=== PATIENT | female | born 1960 | race Caucasian/White ===

== ENCOUNTER 2017-07-13 00:45 | Day surgery (SDC) | payer MEDICARE, OTHER ==
[~2017-07-13] VITALS: Ht 172.7 cm; Wt 77.0 kg
[~2017-07-13 00:45] MED LIST: ACET325 PO; ACIDOPHILUS LA1 EACH PO; AMOCLA875 PO; ASCO500 PO; ASPI81CH PO; ATEN100; Bactrim Ds Tab1 EACH PO; CEPH500 PO; CLON.1 PO; Cleocin HCl300 MG PO; DOXY100 PO; ESOM20 PO; Ferrous Sulfat325 MG PO; GABA300 PO; GLIP5 PO; HYDACE5 PO; INSDET100 SC; LEVO750 PO; LISI20 PO; LISINOPRIL; METF500 PO; MORP30ER PO; MUPI1NAS; Novolog Fl100 UNIT/1 SC; OMEP20ER PO; ONDA4 PO; ONDA4ODT MM; OXYACE5T PO; OXYC15ER PO; Omeprazole20 M1 PO; PRED20 PO; PROM25 PO; Roxicodone15 MG PO; SULTRIDS PO; Silvadene20 GM TOP; TRAM50 PO; VANCO 1.251.25 GM/25 IV; Zofran Odt8 MG SL
[2017-07-13 08:31] LABS: Creatinine, Blood 0.56 mg/dL (0.40-1.00); Vancomycin, Trough 10.4 ug/mL (5.0-10.0)
[2017-07-21] MEDS ORDERED: VANCO 1.51.5 GM/250 IV (07:48)
[2017-08-05] MEDS ORDERED: METO2.5 PO (08:06)
[2017-08-05] MEDS ORDERED: SPIR25 PO (08:06)
[2017-08-05] MEDS ORDERED: BUME2 PO (08:07)
== END 2017-07-14 22:46 | disposition home or self-care (01) ==
LOC: ATC 00:45
PROVIDERS: Internal Medicine Infectious Disease
DX: E11.69 Type 2 diabetes mellitus with other specified complication (principal); M86.9 Osteomyelitis, unspecified; G35 Multiple sclerosis; J44.9 Chronic obstructive pulmonary disease, unspecified; I10 Essential (primary) hypertension; D63.8 Anemia in other chronic diseases classified elsewhere; F17.210 Nicotine dependence, cigarettes, uncomplicated; Z89.429 Acquired absence of other toe(s), unspecified side; Z79.899 Other long term (current) drug therapy; Z88.8 Allergy status to other drugs, medicaments and biological substances
CPT/HCPCS: 80202; 82565; 96365; J3370; J7050

== ENCOUNTER 2017-07-14 00:26 | Day surgery (SDC) | payer MEDICARE, OTHER ==
[2017-07-21] MEDS ORDERED: VANCO 1.51.5 GM/250 IV (07:48)
[2017-08-05] MEDS ORDERED: SPIR25 PO (08:06)
[2017-08-05] MEDS ORDERED: METO2.5 PO (08:06)
[2017-08-05] MEDS ORDERED: BUME2 PO (08:07)
== END 2017-07-14 18:50 | disposition home or self-care (01) ==
LOC: ATC 00:26
DX: E11.69 Type 2 diabetes mellitus with other specified complication (principal); M86.9 Osteomyelitis, unspecified; D63.8 Anemia in other chronic diseases classified elsewhere; G35 Multiple sclerosis; I10 Essential (primary) hypertension; J44.9 Chronic obstructive pulmonary disease, unspecified; F17.210 Nicotine dependence, cigarettes, uncomplicated; Z89.429 Acquired absence of other toe(s), unspecified side; Z79.899 Other long term (current) drug therapy; Z88.8 Allergy status to other drugs, medicaments and biological substances
CPT/HCPCS: 96365; 96366; J3370; J7050

== ENCOUNTER 2017-08-11 00:45 | Day surgery (SDC) | payer MEDICARE, OTHER ==
[~2017-08-11 00:45] MED LIST changes: +BUME2 PO; +METO2.5 PO; +SPIR25 PO; +VANCO 1.51.5 GM/250 IV
== END 2017-08-11 18:43 | disposition home or self-care (01) ==
LOC: ATC 00:45
DX: E11.69 Type 2 diabetes mellitus with other specified complication (principal); M86.171 Other acute osteomyelitis, right ankle and foot; M86.172 Other acute osteomyelitis, left ankle and foot; I96 Gangrene, not elsewhere classified; G35 Multiple sclerosis; D63.8 Anemia in other chronic diseases classified elsewhere; E11.621 Type 2 diabetes mellitus with foot ulcer; L97.516 Non-pressure chronic ulcer of other part of right foot with bone involvement without evidence of necrosis; J44.9 Chronic obstructive pulmonary disease, unspecified; Z89.422 Acquired absence of other left toe(s); Z89.421 Acquired absence of other right toe(s); Z95.828 Presence of other vascular implants and grafts; F17.210 Nicotine dependence, cigarettes, uncomplicated; Z88.8 Allergy status to other drugs, medicaments and biological substances; Z45.2 Encounter for adjustment and management of vascular access device
CPT/HCPCS: 36593; 96365; J2997; J3370; J7050

== ENCOUNTER 2017-08-13 00:16 | Day surgery (SDC) | payer MEDICARE, OTHER | END 2017-08-13 23:19 | disposition home or self-care (01) | LOC: ATC 00:16 | DX: E11.69 Type 2 diabetes mellitus with other specified complication (principal); M86.9 Osteomyelitis, unspecified; E11.621 Type 2 diabetes mellitus with foot ulcer; L97.519 Non-pressure chronic ulcer of other part of right foot with unspecified severity; Z89.421 Acquired absence of other right toe(s); I10 Essential (primary) hypertension; G35 Multiple sclerosis; J44.9 Chronic obstructive pulmonary disease, unspecified; D63.0 Anemia in neoplastic disease; F17.210 Nicotine dependence, cigarettes, uncomplicated ==

== ENCOUNTER 2017-08-14 00:33 | Day surgery (SDC) | payer MEDICARE, OTHER ==
[2017-08-14 08:30] LABS: Creatinine, Blood 1.02 mg/dL (0.40-1.00); Vancomycin, Trough 6.6 ug/mL (5.0-10.0)
== END 2017-08-14 18:23 | disposition home or self-care (01) ==
LOC: ATC 00:33
PROVIDERS: Internal Medicine Infectious Disease
DX: E11.69 Type 2 diabetes mellitus with other specified complication (principal); M86.9 Osteomyelitis, unspecified; G35 Multiple sclerosis; E11.621 Type 2 diabetes mellitus with foot ulcer; I10 Essential (primary) hypertension; D63.0 Anemia in neoplastic disease; L97.519 Non-pressure chronic ulcer of other part of right foot with unspecified severity; Z89.421 Acquired absence of other right toe(s); F17.210 Nicotine dependence, cigarettes, uncomplicated
CPT/HCPCS: 80202; 82565; 96365; J3370; J7050

== ENCOUNTER 2017-08-15 00:09 | Day surgery (SDC) | payer MEDICARE, OTHER | END 2017-08-15 18:15 | disposition home or self-care (01) | LOC: ATC 00:09 | DX: E11.69 Type 2 diabetes mellitus with other specified complication (principal); M86.9 Osteomyelitis, unspecified; G35 Multiple sclerosis; E11.621 Type 2 diabetes mellitus with foot ulcer; I10 Essential (primary) hypertension; D63.0 Anemia in neoplastic disease; L97.519 Non-pressure chronic ulcer of other part of right foot with unspecified severity; Z89.421 Acquired absence of other right toe(s) | CPT/HCPCS: 85651; 86140; 96365; J3370; J7050 ==

== ENCOUNTER 2017-08-16 00:22 | Day surgery (SDC) | payer MEDICARE, OTHER | END 2017-08-16 23:20 | disposition home or self-care (01) | LOC: ATC 00:22 | DX: E11.69 Type 2 diabetes mellitus with other specified complication (principal); M86.9 Osteomyelitis, unspecified; G35 Multiple sclerosis; D63.0 Anemia in neoplastic disease; E11.621 Type 2 diabetes mellitus with foot ulcer; L97.519 Non-pressure chronic ulcer of other part of right foot with unspecified severity; Z89.421 Acquired absence of other right toe(s); F17.210 Nicotine dependence, cigarettes, uncomplicated | CPT/HCPCS: 96365; J3370; J7050 ==

== ENCOUNTER 2017-08-17 01:05 | Day surgery (SDC) | payer MEDICARE, OTHER ==
[2017-08-17 08:19] LABS: BASOPHILS ABSOLUTE AUTO 0.02 K/mm3 (0.00-0.23); BASOPHILS PERCENT AUTO 0 % (0-2); EOSINOPHILS ABSOLUTE AUTO 0.13 K/mm3 (0.00-0.68); EOSINOPHILS PERCENT AUTO 2 % (0-6); Hematocrit 36.1 % (33.0-51.0); Hemoglobin 11.4 g/dL (11.5-16.0); IMMATURE GRAN ABSOLUTE AUTO 0.01 K/mm3 (0.00-0.10); IMMATURE GRAN PERCENT AUTO 0 % (0-1); LYMPHOCYTES ABSOLUTE AUTO 2.49 K/mm3 (0.84-5.20); LYMPHOCYTES PERCENT AUTO 41 % (21-46); MONOCYTES ABSOLUTE AUTO 0.36 K/mm3 (0.16-1.47); MONOCYTES PERCENT AUTO 6 % (4-13); Mean Corpuscular HGB 25.6 pg (26.0-34.0); Mean Corpuscular HGB Conc 31.6 g/dL (31.5-36.5); Mean Corpuscular Volume 81 fL (80-100); Mean Platelet Volume 9.6 fL (9.1-12.4); NEUTROPHILS ABSOLUTE AUTO 3.05 K/mm3 (1.96-9.15); NEUTROPHILS PERCENT AUTO 50 % (41-73); Platelet Count 288 K/mm3 (150-400); RDW Coefficient Variation 18.1 % (11.7-14.2); Red Blood Cell Count 4.45 M/mm3 (3.80-5.20); White Blood Cell Count 6.06 K/mm3 (4.00-11.30)
[2017-08-17 08:23] LABS: Alanine Aminotransfer (ALT/SGP 17 U/L (12-78); Albumin, Blood 3.3 g/dL (3.4-5.0); Albumin/Globulin Ratio 0.6 (0.8-1.8); Alk Phos 125 U/L (50-136); Anion Gap 4 mmol/L (6-16); Aspartate Aminotrans (AST/SGOT 19 U/L (12-37); Bilirubin, Total 0.3 mg/dL (0.1-1.0); Blood Urea Nitrogen 19 mg/dL (8-24); CO2, Blood 31 mmol/L (21-32); Calcium, Blood 9.1 mg/dL (8.5-10.1); Chloride, Blood 96 mmol/L (98-108); Creatinine, Blood 0.86 mg/dL (0.40-1.00); Globulin, Blood 5.1 g/dL (2.2-4.0); Glomerular Filtration Rate >60 (60-); Glucose, Blood 174 mg/dL (70-99); Potassium, Blood 4.2 mmol/L (3.5-5.5); Sodium, Blood 131 mmol/L (136-145); Total Protein, Blood 8.4 g/dL (6.4-8.2)
[2017-08-17 08:47] LABS: Vancomycin, Trough 23.1 ug/mL (5.0-10.0)
== END 2017-08-17 17:37 | disposition home or self-care (01) ==
LOC: ATC 01:05
PROVIDERS: Internal Medicine Infectious Disease
DX: E11.69 Type 2 diabetes mellitus with other specified complication (principal); M86.9 Osteomyelitis, unspecified; G35 Multiple sclerosis; E11.621 Type 2 diabetes mellitus with foot ulcer; L97.519 Non-pressure chronic ulcer of other part of right foot with unspecified severity; Z89.429 Acquired absence of other toe(s), unspecified side; I10 Essential (primary) hypertension; J44.9 Chronic obstructive pulmonary disease, unspecified; D63.0 Anemia in neoplastic disease
CPT/HCPCS: 80053; 80202; 85025; 96365; J3370; J7050

== ENCOUNTER 2017-08-18 00:43 | Day surgery (SDC) | payer MEDICARE, OTHER | END 2017-08-18 17:50 | disposition home or self-care (01) | LOC: ATC 00:43 | DX: E11.69 Type 2 diabetes mellitus with other specified complication (principal); M86.9 Osteomyelitis, unspecified; G35 Multiple sclerosis; E11.621 Type 2 diabetes mellitus with foot ulcer; L97.519 Non-pressure chronic ulcer of other part of right foot with unspecified severity; Z89.429 Acquired absence of other toe(s), unspecified side; I10 Essential (primary) hypertension; D63.0 Anemia in neoplastic disease; F17.210 Nicotine dependence, cigarettes, uncomplicated | CPT/HCPCS: 96365; J3370; J7050 ==

== ENCOUNTER 2017-08-19 00:43 | Day surgery (SDC) | payer MEDICARE, OTHER | END 2017-08-19 17:38 | disposition home or self-care (01) | LOC: ATC 00:43 | DX: E11.69 Type 2 diabetes mellitus with other specified complication (principal); M86.171 Other acute osteomyelitis, right ankle and foot; I96 Gangrene, not elsewhere classified; Z88.8 Allergy status to other drugs, medicaments and biological substances; G35 Multiple sclerosis | CPT/HCPCS: 96365; J3370; J7050 ==

== ENCOUNTER → 2017-08-30 | Outpatient (CLI) | payer MEDICARE, OTHER | END | disposition home or self-care (01) | LOC: LAB 13:50 | DX: E11.621 Type 2 diabetes mellitus with foot ulcer (principal); M86.172 Other acute osteomyelitis, left ankle and foot | CPT/HCPCS: 87070; 87075; 87077; 87186; 87205 ==

== ENCOUNTER → 2017-09-06 | Outpatient (CLI) | payer MEDICARE, OTHER | LOC: LAB 14:54 | DX: M86.179 Other acute osteomyelitis, unspecified ankle and foot (principal) | CPT/HCPCS: 87070; 87077; 87147; 87186; 87205 ==

== ENCOUNTER 2019-06-25 11:20 | Emergency (ER) | payer MEDICARE, OTHER ==
[~2019-06-25] VITALS: Ht 172.7 cm; Wt 86.2 kg
[2019-06-25] MEDS ORDERED: Bactrim Ds Tab1 EACH PO (12:08)
[2019-06-25] MEDS ORDERED: CEPH500 PO (12:08)
== END 2019-06-25 12:15 | disposition home or self-care (01) ==
LOC: ER 11:20
DX: L03.115 Cellulitis of right lower limb (principal); L03.116 Cellulitis of left lower limb; E11.9 Type 2 diabetes mellitus without complications; I10 Essential (primary) hypertension; F17.210 Nicotine dependence, cigarettes, uncomplicated; Z91.09 Other allergy status, other than to drugs and biological substances; Z79.899 Other long term (current) drug therapy
CPT/HCPCS: 99282

== ENCOUNTER 2020-04-18 10:59 | Inpatient (IN) | payer MEDICARE, OTHER ==
[~2020-04-18] VITALS: Ht 172.7 cm; Wt 81.7 kg
[~2020-04-18 10:59] MED LIST changes: +Neurontin 100100 MG PO; +PANT40 PO; -Roxicodone15 MG PO; +Zovirax800 MG PO
[2020-04-18 12:10] LABS: BASOPHILS ABSOLUTE AUTO 0.04 K/mm3 (0.00-0.23); BASOPHILS PERCENT AUTO 0 % (0-2); EOSINOPHILS ABSOLUTE AUTO 0.04 K/mm3 (0.00-0.68); EOSINOPHILS PERCENT AUTO 0 % (0-6); Hematocrit 27.8 % (33.0-51.0); Hemoglobin 8.6 g/dL (11.5-16.0); IMMATURE GRAN PERCENT AUTO 1 % (0-1); LYMPHOCYTES ABSOLUTE AUTO 1.14 K/mm3 (0.84-5.20); LYMPHOCYTES PERCENT AUTO 7 % (21-46); MONOCYTES ABSOLUTE AUTO 0.61 K/mm3 (0.16-1.47); MONOCYTES PERCENT AUTO 4 % (4-13); Mean Corpuscular HGB 26.1 pg (26.0-34.0); Mean Corpuscular HGB Conc 30.9 g/dL (31.5-36.5); Mean Corpuscular Volume 84 fL (80-100); Mean Platelet Volume 9.6 fL (9.1-12.4); NEUTROPHILS ABSOLUTE AUTO 13.51 K/mm3 (1.96-9.15); NEUTROPHILS PERCENT AUTO 87 % (41-73); Platelet Count 371 K/mm3 (150-400); RDW Coefficient Variation 16.3 % (11.7-14.2); RDW Standard Deviation 50.6 fL (35.1-46.3); White Blood Cell Count 15.44 K/mm3 (4.00-11.30)
[2020-04-18 12:26] LABS: Albumin, Blood 1.6 g/dL (3.4-5.0); Albumin/Globulin Ratio 0.2 (0.8-1.8); Bilirubin, Total 0.5 mg/dL (0.1-1.0); Bun/Creatinine Ratio 13.9 (12.0-20.0); Calcium, Blood 8.9 mg/dL (8.5-10.1); Creatinine, Blood 2.01 mg/dL (0.40-1.00); Globulin, Blood 6.9 g/dL (2.2-4.0); Potassium, Blood 4.5 mmol/L (3.5-5.5); Total Protein, Blood 8.5 g/dL (6.4-8.2)
[2020-04-18 12:32] LABS: International Normalized Ratio 1.21; Prothrombin Time Results 12.8 Sec (9.7-11.5)
[2020-04-18] MEDS ORDERED: ROXICODONE15 MG PO (13:19)
[2020-04-18] MEDS ORDERED: MORP30 PO (13:20)
[2020-04-18] MEDS ORDERED: TRAM50 PO (13:21)
[2020-04-18 14:08] LABS: Hemoglobin 7.7 g/dL (11.5-16.0)
--- NOTE | 2020-04-18 18:46 | NUR ---
1735 ARRIVAL TO UNIT PT REQUESTING PAIN MEDICATION FOR 10/10 BILAT LEG PAIN AND BACK PAIN. PT DECLINES TO ALLOW THIS RN TO DO A COMPLETE ASSESSMENT AT THIS TIME. PT REQUESTS A WHEELCHAIR SO SHE CAN AMBULATE OUTSIDE TO SMOKE. PT IS UNRECEPTIVE TO ANY INFORMATION ON SMOKING CESSATION, DECLINES OFFERS OF NICOTINE PATCH. PT STATES SHE IS TAKING HERSELF OUT TO SMOKE. PT REFUSES CUSTOMER LOYALTY REPRESENTATIVE BEING PLACED AT THIS TIME. PT REFUSES ANY MEDICATION AT THIS TIME OTHER THAN REQUESTS PAIN MEDS. CALL PLACED TO DR ARMAS TO INFORM HER OF PATIENT DECLINING TELEMETRY AND ANY MEDS AT THIS TIME AND THAT PATIENT IS SELF AMBULATING OUTSIDE TO SMOKE
--- NOTE | 2020-04-18 18:53 | NUR ---
PT REMAINS OFF UNIT AT THIS TIME. REPORT GIVEN TO ONCOMING SHIFT RN
--- NOTE | 2020-04-19 04:19 | NUR ---
SHIFT SUMMARY SEPSIS, GANGRENOUS FOOT ULCER, A/O, VSS, PT REPORTS HAVING CHRONIC LOWER BACK/HIP PAIN, MEDICATING PER EMAR. PT INITIALLY REFUSED TELEMETRY, EDUCATION PROVIDED ON THE PROCEDURE FOR APPLYING TELEMETRY, RISKS, AND REASON FOR HAVING HER ON IT, PT AGREED TO ALLOW PLACEMENT, RATE AND RHYTHM CONFIRMED W/ PATIENCE VILLA RN. PT INITIALLY REFUSED ALL MEDICATIONS EXCEPT FOR PAIN, EDUCATION PROVIDED ON EACH MEDICATION INCLUDING THERAPEUTIC EFFECTS, REASON PRESCRIBED, AND POTENTIAL SIDE EFFECTS. PT AGREED TO TAKE PRESCRIBED MEDICATIONS PER EMAR. ULCER ON BOTTOM OF R FOOT OOZING SEROSANGUINEOUS FLUID, COVERED W/ STERILE NON ADHESIVE ABSORBANT PAD. WILL CONTINUE TO MONITOR AND [facility].
[2020-04-19 05:16] LABS: BASOPHILS ABSOLUTE AUTO 0.03 K/mm3 (0.00-0.23); BASOPHILS PERCENT AUTO 0 % (0-2); EOSINOPHILS ABSOLUTE AUTO 0.11 K/mm3 (0.00-0.68); EOSINOPHILS PERCENT AUTO 1 % (0-6); Hematocrit 24.9 % (33.0-51.0); Hemoglobin 7.4 g/dL (11.5-16.0); IMMATURE GRAN ABSOLUTE AUTO 0.07 K/mm3 (0.00-0.10); IMMATURE GRAN PERCENT AUTO 1 % (0-1); LYMPHOCYTES ABSOLUTE AUTO 1.93 K/mm3 (0.84-5.20); LYMPHOCYTES PERCENT AUTO 17 % (21-46); MONOCYTES ABSOLUTE AUTO 0.68 K/mm3 (0.16-1.47); MONOCYTES PERCENT AUTO 6 % (4-13); Mean Corpuscular HGB 25.3 pg (26.0-34.0); Mean Corpuscular HGB Conc 29.7 g/dL (31.5-36.5); Mean Corpuscular Volume 85 fL (80-100); Mean Platelet Volume 9.6 fL (9.1-12.4); NEUTROPHILS ABSOLUTE AUTO 8.26 K/mm3 (1.96-9.15); NEUTROPHILS PERCENT AUTO 75 % (41-73); Platelet Count 367 K/mm3 (150-400); RDW Coefficient Variation 16.5 % (11.7-14.2); RDW Standard Deviation 51.8 fL (35.1-46.3); Red Blood Cell Count 2.92 M/mm3 (3.80-5.20); White Blood Cell Count 11.08 K/mm3 (4.00-11.30)
[2020-04-19 05:28] LABS: Percent Saturation 25.6 % (15.0-50.0)
[2020-04-19 05:35] LABS: Alanine Aminotransfer (ALT/SGP 13 U/L (12-78); Albumin, Blood 1.4 g/dL (3.4-5.0); Albumin/Globulin Ratio 0.2 (0.8-1.8); Alk Phos 142 U/L (50-136); Anion Gap 6 mmol/L (6-16); Aspartate Aminotrans (AST/SGOT 31 U/L (12-37); Bilirubin, Total 0.3 mg/dL (0.1-1.0); Blood Urea Nitrogen 32 mg/dL (8-24); Bun/Creatinine Ratio 15.4 (12.0-20.0); CO2, Blood 30 mmol/L (21-32); Calcium, Blood 8.3 mg/dL (8.5-10.1); Chloride, Blood 93 mmol/L (98-108); Creatinine, Blood 2.08 mg/dL (0.40-1.00); Globulin, Blood 6.2 g/dL (2.2-4.0); Glomerular Filtration Rate 26 (60-); Glucose, Blood 151 mg/dL (70-99); Potassium, Blood 4.1 mmol/L (3.5-5.5); Sodium, Blood 129 mmol/L (136-145); Total Protein, Blood 7.6 g/dL (6.4-8.2); Vancomycin, Random 13.6 ug/mL
--- NOTE | 2020-04-19 08:27 | NUR ---
PT LEFT UNIT AT BEGINNING OF SHIFT TO GO OUTSIDE PRE OP RN HERE TO NURSING SPECIALIST FOR SURGERY. HAD ANNOUNCEMENT MADE TO RETURN TO ROOM.
--- NOTE | 2020-04-19 09:21 | NUR ---
PT TO SURGERY SENT ABX W/ PICKUP DRIVER.
--- NOTE | 2020-04-19 13:32 | NUR ---
PT ARRIVED BACK TO UNIT FROM PACU AT APPROXIMATLEY 1205 REPORTED 8/10 PAIN. MEDICATED PER ORDERS. CONTINUED TO RATE AT 810, REC'D ORDERS FROM DR ARMAS FOR OT DOSE OF 1 MG DILAUDID; ADMINISTERED. PT REPORTED BROUGHT PAIN DOWN TO 7/10. DRESSING TO RLE CDI. PT REFUSING TELE AT THIS TIME.
--- NOTE | 2020-04-19 15:09 | NUR ---
PT REFUSED THERAPY
--- NOTE | 2020-04-19 16:31 | NUR ---
PT INSISTENT ON GOING OUTSIDE TO SMOKE OFFERED TO GET NICOTINE PATCH ORDER WHICH PT REFUSED. TWO PERSON MODERATE ASSIST TO STAND AND PIVOT WC. S.O. WHEELED OUTSIDE IN .
--- NOTE | 2020-04-19 17:01 | NUR ---
PT BACK TO ROOM WANTS TO SIT UP IN WC FOR AWHILE.
--- NOTE | 2020-04-19 18:07 | NUR ---
SUMMARY PT S/P R BKA THIS SHIFT. VSS. SMALL AMT SS DRAINAGE NOTED ON STOCKING THIS EVENING. PT REPORTS PAIN TOLERABLE AT THIS TIME, RATING 5/10 ON PAIN SCALE. PT INSISTED ON GOING OUTSIDE TO SMOKE IN WC, ACCOMPANIED BY S.O, REFUSED OFFER TO GET ORDER FOR NICOTINE PATCH. PT REFUSED TO WORK W/THERAPY AFTER GOING OUTSIDE. WAS ABLE TO STAND AND PIVOT TO AND BACK TO BED W/MODERATE ASSIST USING GAIT BELT. CALL LIGHT IN REACH.
--- NOTE | 2020-04-19 18:27 | NUR ---
PT HAD NOT VOIDED SINCE POST OP BS SHOWED 103. DISCUSSED W/DR ARMAS. NO NEW ORDERS AT THIS TIME.
[2020-04-20 04:33] LABS: BASOPHILS ABSOLUTE AUTO 0.01 K/mm3 (0.00-0.23); BASOPHILS PERCENT AUTO 0 % (0-2); EOSINOPHILS PERCENT AUTO 0 % (0-6); Hematocrit 23.8 % (33.0-51.0); Hemoglobin 7.1 g/dL (11.5-16.0); IMMATURE GRAN ABSOLUTE AUTO 0.06 K/mm3 (0.00-0.10); IMMATURE GRAN PERCENT AUTO 1 % (0-1); LYMPHOCYTES ABSOLUTE AUTO 0.86 K/mm3 (0.84-5.20); LYMPHOCYTES PERCENT AUTO 10 % (21-46); MONOCYTES ABSOLUTE AUTO 0.19 K/mm3 (0.16-1.47); MONOCYTES PERCENT AUTO 2 % (4-13); Mean Corpuscular HGB 25.5 pg (26.0-34.0); Mean Corpuscular HGB Conc 29.8 g/dL (31.5-36.5); Mean Corpuscular Volume 86 fL (80-100); Mean Platelet Volume 9.7 fL (9.1-12.4); NEUTROPHILS ABSOLUTE AUTO 7.68 K/mm3 (1.96-9.15); NEUTROPHILS PERCENT AUTO 87 % (41-73); Platelet Count 347 K/mm3 (150-400); RDW Coefficient Variation 16.2 % (11.7-14.2); RDW Standard Deviation 51.2 fL (35.1-46.3); Red Blood Cell Count 2.78 M/mm3 (3.80-5.20)
[2020-04-20 04:55] LABS: Anion Gap 5 mmol/L (6-16); Blood Urea Nitrogen 34 mg/dL (8-24); Bun/Creatinine Ratio 21.1 (12.0-20.0); CO2, Blood 27 mmol/L (21-32); Calcium, Blood 7.3 mg/dL (8.5-10.1); Chloride, Blood 101 mmol/L (98-108); Creatinine, Blood 1.61 mg/dL (0.40-1.00); Glomerular Filtration Rate 35 (60-); Glucose, Blood 160 mg/dL (70-99); Potassium, Blood 4.6 mmol/L (3.5-5.5); Sodium, Blood 133 mmol/L (136-145); Vancomycin, Random 16.2 ug/mL
--- NOTE | 2020-04-20 05:02 | NUR ---
SHIFT SUMMARY R BKA POD0, PT A/O X4, VSS, TEMPORAL TEMPERATURE LOW @ 96.5/96.6 CONFIRMED W/ ORAL TEMPERATURE. PT DENIES FEELING COLD, DISTAL PULSES IN 3 EXTREMETIES STRONG W/ <3 SECOND CAP REFILL, SKIN PINK AND DRY, THERMOSTAT IN ROOM ADJUSTED UP TO 70 DEGREES, PT REPORTS FEELING COMFORTABLE @ THAT SETTING. PAIN CONTROLLED W/ ORAL/IV PAIN MEDICATIONS PER EMAR. RLE IN STUMP SOCK AFTER SURGERY, LIMB ELEVATED ON PILLOWS IN BED. TOLERATING PO, VOIDING WELL, COOPERATING W/ CARE. WILL CONTINUE TO MONITOR AND REPORT TO ONCOMING DAY RN.
--- NOTE | 2020-04-20 08:50 | NUR ---
PT GOING OUTSIDE TO SMOKE. IN WC W/VISITOR
--- NOTE | 2020-04-20 09:20 | NUR ---
pt back to room
--- NOTE | 2020-04-20 12:38 | NUR ---
UNABLE TO ESTABLISH POWERGLIDE. REBEKA FORREST MADE TWO ATTEMPTS AND WAS UNABLE TO ESTABLISH POWERGLIDE. ABLE TO INFUSE ABX THROUGH 22G IV TO RAC WHILE PULLING BACK ON HUB. DISCUSSED W/DR ARMAS. ORDERS PENDING.
--- NOTE | 2020-04-20 13:18 | NUR ---
ECHOCARDIOGRAM COMPLETED
--- NOTE | 2020-04-20 14:33 | NUR ---
PT OUTSIDE ON PERSONAL [place] SCOOTER. STOOD AND HOPPED/PIVOTED TO PERSONAL SCOOTER W/TWO PERSON ASSIST. NOW OUTSIDE TO SMOKE.
--- NOTE | 2020-04-20 15:02 | NUR ---
PT BACK TO ROOM WANTS TO SIT UP IN SCOOTER FOR AWHILE. WILL CALL FOR ASSISTANCE BACK TO BED.
--- NOTE | 2020-04-20 16:03 | NUR ---
PT OUT OF ROOM IN PERSONAL MOTORIZED SCOOTER.
--- NOTE | 2020-04-20 17:53 | NUR ---
DR CISNEROS IN TO CHANGE PT'S DRESSING.
--- NOTE | 2020-04-20 17:57 | NUR ---
SUMMARY NO ACUTE CHANGES T/O SHIFT. PT WORKED W/THERAPY. WAS ABLE TO GET IN PERSONAL MOTORIZED SCOOTER W/TWO PERSON MOD ASSIST AND GO OUTSIDE. NOW BACK IN BED. DR WATTS IN THIS EVENING AND REMOVED DRAIN AND CHANGED DRESSING TO RLE. MEDICATED PER ORDERS FOR PAIN AND HEARTBURN. OBTAINED ORDERS FOR PRILOSEC PER PT REQUEST. PT EATING DINNER. CALL LIGHT IN REACH.
[2020-04-21 04:09] LABS: BASOPHILS ABSOLUTE AUTO 0.01 K/mm3 (0.00-0.23); BASOPHILS PERCENT AUTO 0 % (0-2); EOSINOPHILS ABSOLUTE AUTO 0.16 K/mm3 (0.00-0.68); EOSINOPHILS PERCENT AUTO 2 % (0-6); Hematocrit 26.1 % (33.0-51.0); Hemoglobin 7.8 g/dL (11.5-16.0); IMMATURE GRAN ABSOLUTE AUTO 0.04 K/mm3 (0.00-0.10); IMMATURE GRAN PERCENT AUTO 1 % (0-1); LYMPHOCYTES ABSOLUTE AUTO 2.35 K/mm3 (0.84-5.20); LYMPHOCYTES PERCENT AUTO 31 % (21-46); MONOCYTES PERCENT AUTO 4 % (4-13); Mean Corpuscular HGB 25.6 pg (26.0-34.0); Mean Corpuscular HGB Conc 29.9 g/dL (31.5-36.5); Mean Corpuscular Volume 86 fL (80-100); Mean Platelet Volume 9.4 fL (9.1-12.4); NEUTROPHILS ABSOLUTE AUTO 4.85 K/mm3 (1.96-9.15); NEUTROPHILS PERCENT AUTO 63 % (41-73); Platelet Count 389 K/mm3 (150-400); RDW Coefficient Variation 16.3 % (11.7-14.2); RDW Standard Deviation 51.5 fL (35.1-46.3); Red Blood Cell Count 3.05 M/mm3 (3.80-5.20); White Blood Cell Count 7.71 K/mm3 (4.00-11.30)
[2020-04-21 04:30] LABS: Bun/Creatinine Ratio 21.1 (12.0-20.0); Calcium, Blood 8.1 mg/dL (8.5-10.1); Creatinine, Blood 1.42 mg/dL (0.40-1.00); Potassium, Blood 4.4 mmol/L (3.5-5.5)
--- NOTE | 2020-04-21 05:19 | NUR ---
SHIFT SUMMARY SEPSIS W/ R BKA, VSS, A/O X4, TRANSFERING FROM BED TO BEDSIDE CAMODE W/ 1 PERSON ASSIST, 2 PERSON ASSIST TO TRANSFER INTO PERSONAL POWER CHAIR. PT PAIN IMPROVING, REQUESTED LESS PAIN MEDICATIONS TONIGHT COMPARED TO PRIOR METAL FURRER. TOLERATING PO, VOIDING WELL, PT COOPERATIVE W/ CARE, RECEPTIVE TO TREATMENT EDUCATION/MANAGEMENT, USES CALL LIGHT APPROPRIATELY, CALL LIGHT IN REACH. WILL CONTINUE TO MONITOR AND REPORT TO ONCOMING DAY RN.
--- NOTE | 2020-04-21 10:25 | NUR ---
DR IRELAND HERE TO SEE PT. DISCUSSED PT'S STATUS.
--- NOTE | 2020-04-21 11:30 | NUR ---
PT OUT OF ROOM AT THIS TIME.
--- NOTE | 2020-04-21 14:34 | NUR ---
PT OUT OF ROOM.
--- NOTE | 2020-04-21 16:42 | NUR ---
SHIFT SUMMARY PT EATING AND DRINKING, VOIDING. PT BEEN UP WITH ASSIST. PT BEEN ASSISTED WITH ADL'S PRN. PT GOES OUTSIDE AT TIMES IN MOTORIZED W/C, PT BEEN EDUCATED ON SMOKING CESSATION. PT BEEN MED PRN FOR PAIN. FAMILY IN/OUT OF ROOM TODAY. PT USING Sequence LIGHT APPR.
[2020-04-22 05:25] LABS: BASOPHILS ABSOLUTE AUTO 0.02 K/mm3 (0.00-0.23); BASOPHILS PERCENT AUTO 0 % (0-2); EOSINOPHILS ABSOLUTE AUTO 0.11 K/mm3 (0.00-0.68); EOSINOPHILS PERCENT AUTO 2 % (0-6); Hemoglobin 7.6 g/dL (11.5-16.0); IMMATURE GRAN ABSOLUTE AUTO 0.06 K/mm3 (0.00-0.10); IMMATURE GRAN PERCENT AUTO 1 % (0-1); LYMPHOCYTES ABSOLUTE AUTO 1.74 K/mm3 (0.84-5.20); LYMPHOCYTES PERCENT AUTO 26 % (21-46); MONOCYTES ABSOLUTE AUTO 0.34 K/mm3 (0.16-1.47); MONOCYTES PERCENT AUTO 5 % (4-13); Mean Corpuscular HGB 25.2 pg (26.0-34.0); Mean Corpuscular HGB Conc 29.2 g/dL (31.5-36.5); Mean Corpuscular Volume 86 fL (80-100); Mean Platelet Volume 9.5 fL (9.1-12.4); NEUTROPHILS ABSOLUTE AUTO 4.49 K/mm3 (1.96-9.15); NEUTROPHILS PERCENT AUTO 67 % (41-73); Platelet Count 415 K/mm3 (150-400); RDW Coefficient Variation 16.4 % (11.7-14.2); RDW Standard Deviation 51.5 fL (35.1-46.3); Red Blood Cell Count 3.02 M/mm3 (3.80-5.20); White Blood Cell Count 6.76 K/mm3 (4.00-11.30)
[2020-04-22 05:48] LABS: Bun/Creatinine Ratio 18.8 (12.0-20.0); Calcium, Blood 7.9 mg/dL (8.5-10.1); Creatinine, Blood 1.28 mg/dL (0.40-1.00); Potassium, Blood 4.9 mmol/L (3.5-5.5)
--- NOTE | 2020-04-22 05:50 | NUR ---
EGG CRATER SUMMARY NO ACUTE CHANGES THIS SHIFT. PT AAOX4 AND PLEASANT. 1 ASSIST WITH FWW AND GB TO HER WC AND BSC. MEDICATED FOR PAIN OF R STUMP AND LOWER BACK PER EMAR. PRN HYDRALAZINE GIVEN THIS AM FOR SBP 170'S. OTHER VSS, WILL CONTINUE TO MONITOR UNTIL DAY RN ASSUMES CARE.
--- NOTE | 2020-04-22 09:07 | NUR ---
PT RECENTLY BACK TO ROOM, ISTRATE HERE TO SEE PT. PT AGREEABLE TO HAVING BLOOD.
--- NOTE | 2020-04-22 15:27 | NUR ---
IST UNIT OF BLOOD STARTED, VERIFIED WITH OTHER RN. PT BEEN WORKING WITH OUTSIDE, GETTING ABX, WORKING WITH THERAPY, THEN OUTSIDE, NOW HAVING FIRST UNIT.
--- NOTE | 2020-04-22 18:33 | NUR ---
PT'S IV RECENTLY LEAKING WHILE GIVING BLOOD. DOES NOT APPEAR TO BE INFILTRATED JUST LEAKING AT SITE. RESULTS ENGINEER ATTEMPTED NEW IV WITH NO SUCCESS. ISTRATE NOTIFIED. DISCUSSED WITH CLIENT EXPERIENCE CONSULTANT AND RESULTS ENGINEER.
--- NOTE | 2020-04-22 18:36 | NUR ---
SHIFT SUMMARY PT EATING AND DRINKING, VOIDING. PT BEEN EDUCATED ON SMOKING CESSATION. PT WAS RECENTLY RECIEVING 1ST UNIT OF BLOOD WHEN IV STARTED LEAKING, SEE OTHER NOTE. [facility]'S [facility]/C. PT WAS TOLERATING BLOOD WITHOUT DIFFICULTY. PT DRESSING TO RIGHT LEG REMAINED C/D/I. PT BEEN ASSISTED WITH ADL'S PRN. PT FAMILY IN ROOM EARLIER TODAY. [facility].
--- NOTE | 2020-04-22 19:10 | NUR ---
REPORT GIVEN TO HS RN INCLUDING THAT IV WAS LEAKING WHILE GIVING BLOOD WITH NO SUCCESS OF NEW IV AT THIS TIME AND THAT NO LASIX WAS GIVEN BETWEEN UNITS R/T TO NO IV ACCESS. ALSO ABX WAS NOT GIVEN YET.
[2020-04-23 04:31] LABS: BASOPHILS ABSOLUTE AUTO 0.02 K/mm3 (0.00-0.23); BASOPHILS PERCENT AUTO 0 % (0-2); EOSINOPHILS ABSOLUTE AUTO 0.09 K/mm3 (0.00-0.68); EOSINOPHILS PERCENT AUTO 1 % (0-6); Hematocrit 35.2 % (33.0-51.0); Hemoglobin 10.7 g/dL (11.5-16.0); IMMATURE GRAN ABSOLUTE AUTO 0.09 K/mm3 (0.00-0.10); IMMATURE GRAN PERCENT AUTO 1 % (0-1); LYMPHOCYTES ABSOLUTE AUTO 1.96 K/mm3 (0.84-5.20); LYMPHOCYTES PERCENT AUTO 26 % (21-46); MONOCYTES ABSOLUTE AUTO 0.32 K/mm3 (0.16-1.47); MONOCYTES PERCENT AUTO 4 % (4-13); Mean Corpuscular HGB 25.8 pg (26.0-34.0); Mean Corpuscular HGB Conc 30.4 g/dL (31.5-36.5); Mean Corpuscular Volume 85 fL (80-100); Mean Platelet Volume 9.2 fL (9.1-12.4); NEUTROPHILS ABSOLUTE AUTO 5.03 K/mm3 (1.96-9.15); NEUTROPHILS PERCENT AUTO 67 % (41-73); Platelet Count 469 K/mm3 (150-400); RDW Coefficient Variation 15.9 % (11.7-14.2); RDW Standard Deviation 49.1 fL (35.1-46.3); Red Blood Cell Count 4.14 M/mm3 (3.80-5.20); White Blood Cell Count 7.51 K/mm3 (4.00-11.30)
[2020-04-23 04:48] LABS: Bun/Creatinine Ratio 18.3 (12.0-20.0); Calcium, Blood 8.3 mg/dL (8.5-10.1); Creatinine, Blood 1.42 mg/dL (0.40-1.00); Potassium, Blood 4.8 mmol/L (3.5-5.5)
--- NOTE | 2020-04-23 05:17 | NUR ---
SHOWER DOORS AND PANELS FABRICATOR SUMMARY PT LOST IV ACCESS DURING DAY SHIFT IN THE MIDDLE OF FIRST UNIT OF BLOOD. PT DIFFICULT IV START SO NEW IV WASN'T STARTED UNTIL AFTER SHIFT STARTED. PT CONSTANTLY INSISTS ON GOING OUTSIDE TO SMOKE WHICH ALSO DELAYED THINGS. 2ND UNIT OF BLOOD INFUSED AND IV LASIX GIVEN RIGHT AFTER PER MD ORDERS. HGB UP TO 10.7 THIS AM. HYPERTENSIVE WITH SBP 180'S AFTER BLOOD INFUSION. WILL GIVE PRN HYDRALAZINE ONCE PT RETURNS FROM OUTSIDE. OTHER VSS, WILL CONTINUE TO MONITOR.
--- NOTE | 2020-04-23 09:10 | NUR ---
[address] PT [address] IN [facility], STATES SHE IS GOING OUTSIDE TO SMOKE. PT ENCOURAGED TO STAY IN ROOM TO RECEIVE AM MEDS AND STATES SHE WILL BE BACK
--- NOTE | 2020-04-23 09:26 | NUR ---
RETURNED TO ROOM TACHO PEDRAZA PT STATES WANTS TO GO HOME. PT REFUSES HEPARIN INJECTION STATES JUST LET ME GO HOME. PT NOT INTERESTEDIN ANY EDUCATION ON HEPARIN
[2020-04-23] MEDS ORDERED: ACET325 PO (10:43)
[2020-04-23] MEDS ORDERED: TUMS500 MG PO (10:45)
[2020-04-23] MEDS ORDERED: CLIN300 PO (10:46)
[2020-04-23] MEDS ORDERED: DOCU100 PO (10:51)
[2020-04-23] MEDS ORDERED: FERSU300 PO (10:52)
[2020-04-23] MEDS ORDERED: GLIP2.5ER PO (10:52)
[2020-04-23] MEDS ORDERED: HYDR10 PO (10:53)
[2020-04-23] MEDS ORDERED: METO25 PO (10:59)
[2020-04-23] MEDS ORDERED: OMEP20ER PO (11:00)
[2020-04-23] MEDS ORDERED: SENN187 PO (11:05)
[2020-04-23] MEDS ORDERED: LACT PO (11:05)
--- NOTE | 2020-04-23 11:28 | NUR ---
1115 DISCHARGE INSTRUCTIONS PT REQUESTING DISCHARGE SOON POSSIBLE. DISCUSSED WITH PATIENT THAT A WHEELCHAIR, WALKER AND COMMODE CHAIR HAVE BEEN PRESCRIBED AND THAT THEY WILL NOT BE AVAILABLE FOR IMMEDIATE PICKUP MEDICAL INFORMATION WILL NEED TO BE FAXED TO DME PROVIDER. PT REQUESTS DME PRESCRIPTION BE FAXED TO [employer]. DISCUSSED WITH PATIENT LOCAL HOME HEALTH AGENCIES THAT ARE AVAILABLE AND PATIENT REQUESTS [facility]. PT REQUESTS SHE BE GIVEN DME PRESCRIPTION AND THAT TELLS ME THAT SHE IS DISCHARGING NOW AND WILL NOT WAIT FOR INSURANCE AUTHORIZATION. PT STATES SHE IS DRIVING HERSELF HOME ON HER SCOOTER AND THAT SHE HAS HELP AT HOME TO GET INTO HER HOME. PRESCRIPTIONS FAXED TO [facility] ON [facility]. ATTEMPTED TO REVIEW DISCHARGE INSTRUCTIONS WITH PATIENT. PT UNINTERESTED IN INSTRUCTIONS, ASKS THAT I GIVE THEM TO [place] STATES SHE WILL LOOK AT THEM HERSELF. VOICEMAIL LEFT FOR [facility] DISCHARGE PLANNING REGARDING NEEDED DME. SPOKE WITH MOUNA HARDY [facility] TO IONFORM OF [facility] REQUEST. PT DISCHARGED VIA SELF WITH SCOOTER AT [id number]
--- NOTE | 2020-04-23 13:19 | NUR ---
CHART NOTES FAXED TO [facility]
== END 2020-04-23 11:26 | disposition home or self-care (01) | DRG 853 ==
LOC: ER 10:59 → ERHOLD 13:47 → ER 13:47 → SURS 13:47
PROVIDERS: Family Medicine; Orthopaedic Surgery; Physician Assistant; ADMIT Internal Medicine
PROC: 30233N1 Transfusion of Nonautologous Red Blood Cells into Peripheral Vein, Percutaneous Approach (ICD-10-PCS; 2020-04-19)
PROC: 0Y6H0Z1 Detachment at Right Lower Leg, High, Open Approach (ICD-10-PCS; principal; 2020-04-19 12:15)
DX: A40.1 Sepsis due to streptococcus, group B (principal); A48.0 Gas gangrene; E11.52 Type 2 diabetes mellitus with diabetic peripheral angiopathy with gangrene; E87.1 Hypo-osmolality and hyponatremia; L03.115 Cellulitis of right lower limb; N17.9 Acute kidney failure, unspecified; D62 Acute posthemorrhagic anemia; Z16.39 Resistance to other specified antimicrobial drug; M86.671 Other chronic osteomyelitis, right ankle and foot; Z20.828 Contact with and (suspected) exposure to other viral communicable diseases; E11.621 Type 2 diabetes mellitus with foot ulcer; E11.22 Type 2 diabetes mellitus with diabetic chronic kidney disease; E78.5 Hyperlipidemia, unspecified; F17.210 Nicotine dependence, cigarettes, uncomplicated; G35 Multiple sclerosis; K21.9 Gastro-esophageal reflux disease without esophagitis; I12.9 Hypertensive chronic kidney disease with stage 1 through stage 4 chronic kidney disease, or unspecified chronic kidney disease; N18.3 Chronic kidney disease, stage 3 (moderate); L97.519 Non-pressure chronic ulcer of other part of right foot with unspecified severity; E11.69 Type 2 diabetes mellitus with other specified complication; Z91.19 Patient's noncompliance with other medical treatment and regimen; E11.65 Type 2 diabetes mellitus with hyperglycemia
CPT/HCPCS: 36415; 36430; 73630; 80048; 80053; 80202; 82607; 82728; 82746; 82947; 83036; 83540; 83550; 83605; 85014; 85018; 85025; 85610; 85651; 85730; 86141; 86850; 86900; 86901; 86923; 87040; 87184; 88307; 93306; 94762; 96365; 96366; 96367; 96375; 97110; 97116; 97162; 97530; 99285-25; A9270-GY; J0171; J0696; J1100; J1170; J1644; J1885; J1940; J2250; J2405; J2550; J2704; J2916; J3010; J3370; J7030; J7050; J7120; P9016; U0002

== ENCOUNTER → 2020-05-15 | Outpatient (CLI) | payer MEDICARE, OTHER ==
[~2020-05-15] MED LIST changes: +CLIN300 PO; +DOCU100 PO; +FERSU300 PO; +GLIP2.5ER PO; +HYDR10 PO; +LACT PO; +Lasix40 MG PO; +METO25 PO; +MORP30 PO; +ROXICODONE15 MG PO; +SENN187 PO; +TUMS500 MG PO
== END ==
LOC: LAB SHORT 12:12 → LAB 12:12
DX: S81.801D Unspecified open wound, right lower leg, subsequent encounter (principal)
CPT/HCPCS: 87070; 87075; 87076; 87185; 87205

== ENCOUNTER 2020-06-07 09:17 | Emergency (ER) | payer MEDICARE, OTHER ==
[~2020-06-07] VITALS: Ht 172.7 cm; Wt 81.7 kg
[~2020-06-07 09:17] MED LIST changes: -Lasix40 MG PO
[2020-06-07 10:01] LABS: BASOPHILS ABSOLUTE AUTO 0.04 K/mm3 (0.00-0.23); BASOPHILS PERCENT AUTO 0 % (0-2); EOSINOPHILS ABSOLUTE AUTO 0.22 K/mm3 (0.00-0.68); EOSINOPHILS PERCENT AUTO 2 % (0-6); Hematocrit 32.7 % (33.0-51.0); IMMATURE GRAN ABSOLUTE AUTO 0.02 K/mm3 (0.00-0.10); IMMATURE GRAN PERCENT AUTO 0 % (0-1); LYMPHOCYTES PERCENT AUTO 20 % (21-46); MONOCYTES ABSOLUTE AUTO 0.36 K/mm3 (0.16-1.47); MONOCYTES PERCENT AUTO 4 % (4-13); Mean Corpuscular HGB 26.2 pg (26.0-34.0); Mean Corpuscular HGB Conc 30.6 g/dL (31.5-36.5); Mean Corpuscular Volume 86 fL (80-100); Mean Platelet Volume 9.9 fL (9.1-12.4); NEUTROPHILS ABSOLUTE AUTO 6.81 K/mm3 (1.96-9.15); NEUTROPHILS PERCENT AUTO 73 % (41-73); Platelet Count 295 K/mm3 (150-400); RDW Coefficient Variation 18.7 % (11.7-14.2); RDW Standard Deviation 59.2 fL (35.1-46.3); Red Blood Cell Count 3.81 M/mm3 (3.80-5.20); White Blood Cell Count 9.35 K/mm3 (4.00-11.30)
[2020-06-07 10:21] LABS: Albumin, Blood 2.6 g/dL (3.4-5.0); Albumin/Globulin Ratio 0.5 (0.8-1.8); Bilirubin, Total 0.2 mg/dL (0.1-1.0); Bun/Creatinine Ratio 21.4 (12.0-20.0); Calcium, Blood 8.5 mg/dL (8.5-10.1); Creatinine, Blood 1.17 mg/dL (0.40-1.00); Globulin, Blood 5.7 g/dL (2.2-4.0); Potassium, Blood 4.4 mmol/L (3.5-5.5); Total Protein, Blood 8.3 g/dL (6.4-8.2); Troponin I 0.019 ng/mL (0.000-0.040)
[2020-06-07] MEDS ORDERED: Cleocin HCl300 MG PO (12:02)
[2020-06-07] MEDS ORDERED: Lasix40 MG PO (12:02)
== END 2020-06-07 12:13 | disposition home or self-care (01) ==
LOC: ER 09:17
PROVIDERS: Emergency Medicine
DX: I11.0 Hypertensive heart disease with heart failure (principal); I50.9 Heart failure, unspecified; E11.9 Type 2 diabetes mellitus without complications; K21.9 Gastro-esophageal reflux disease without esophagitis; E78.5 Hyperlipidemia, unspecified; F17.200 Nicotine dependence, unspecified, uncomplicated; Z88.5 Allergy status to narcotic agent; Z79.84 Long term (current) use of oral hypoglycemic drugs; Z79.899 Other long term (current) drug therapy
CPT/HCPCS: 36415; 71045; 80053; 83880; 84484; 85025; 93005; 93010; 99284-25

== ENCOUNTER 2020-06-12 15:54 | Emergency (ER) | payer MEDICARE, OTHER ==
[~2020-06-12] VITALS: Ht 172.7 cm; Wt 81.7 kg
[~2020-06-12 15:54] MED LIST changes: +Lasix40 MG PO; -MORP30 PO; -ROXICODONE15 MG PO
[2020-06-12 18:22] LABS: BASOPHILS ABSOLUTE AUTO 0.04 K/mm3 (0.00-0.23); BASOPHILS PERCENT AUTO 0 % (0-2); EOSINOPHILS ABSOLUTE AUTO 0.16 K/mm3 (0.00-0.68); EOSINOPHILS PERCENT AUTO 2 % (0-6); Hematocrit 33.4 % (33.0-51.0); Hemoglobin 10.2 g/dL (11.5-16.0); IMMATURE GRAN ABSOLUTE AUTO 0.04 K/mm3 (0.00-0.10); IMMATURE GRAN PERCENT AUTO 0 % (0-1); LYMPHOCYTES ABSOLUTE AUTO 2.42 K/mm3 (0.84-5.20); LYMPHOCYTES PERCENT AUTO 26 % (21-46); MONOCYTES ABSOLUTE AUTO 0.41 K/mm3 (0.16-1.47); MONOCYTES PERCENT AUTO 4 % (4-13); Mean Corpuscular HGB 26.2 pg (26.0-34.0); Mean Corpuscular HGB Conc 30.5 g/dL (31.5-36.5); Mean Corpuscular Volume 86 fL (80-100); NEUTROPHILS ABSOLUTE AUTO 6.34 K/mm3 (1.96-9.15); NEUTROPHILS PERCENT AUTO 67 % (41-73); Platelet Count 324 K/mm3 (150-400); RDW Coefficient Variation 18.2 % (11.7-14.2); RDW Standard Deviation 56.6 fL (35.1-46.3); Red Blood Cell Count 3.89 M/mm3 (3.80-5.20); White Blood Cell Count 9.41 K/mm3 (4.00-11.30)
[2020-06-12 18:41] LABS: Troponin I 0.021 ng/mL (0.000-0.040)
[2020-06-12 18:42] LABS: Albumin, Blood 2.4 g/dL (3.4-5.0); Albumin/Globulin Ratio 0.4 (0.8-1.8); Bilirubin, Total 0.2 mg/dL (0.1-1.0); Bun/Creatinine Ratio 15.9 (12.0-20.0); Calcium, Blood 9.4 mg/dL (8.5-10.1); Creatinine, Blood 1.07 mg/dL (0.40-1.00); Globulin, Blood 5.5 g/dL (2.2-4.0); Potassium, Blood 4.4 mmol/L (3.5-5.5); Total Protein, Blood 7.9 g/dL (6.4-8.2)
[2020-06-12 20:51] LABS: Magnesium, Blood 1.9 mg/dL (1.6-2.4)
[2020-06-12] MEDS ORDERED: MORP30 PO (21:04)
[2020-06-12] MEDS ORDERED: ROXICODONE15 MG PO (21:04)
[2020-06-12] MEDS ORDERED: TRAM50 PO (21:05)
[2020-06-12] MEDS ORDERED: LISI20 PO (21:06)
== END 2020-06-12 22:04 | disposition left against medical advice (07) ==
LOC: ER 15:54
PROVIDERS: Emergency Medicine; Physician Assistant
DX: I11.0 Hypertensive heart disease with heart failure (principal); I50.9 Heart failure, unspecified; E11.9 Type 2 diabetes mellitus without complications; K21.9 Gastro-esophageal reflux disease without esophagitis; E78.5 Hyperlipidemia, unspecified; F17.200 Nicotine dependence, unspecified, uncomplicated; Z79.899 Other long term (current) drug therapy; Z91.041 Radiographic dye allergy status
CPT/HCPCS: 36415; 71046; 80053; 83735; 83880; 84100; 84484; 85025; 93005; 93010; 96374; 99285-25; G0378; J1940

== ENCOUNTER 2020-10-23 10:14 | Emergency (ER) | payer MEDICARE, OTHER ==
[~2020-10-23] VITALS: Ht 172.7 cm; Wt 81.7 kg
[~2020-10-23 10:14] MED LIST changes: +MORP30 PO; +ROXICODONE15 MG PO
[2020-10-23 11:08] LABS: BASOPHILS ABSOLUTE AUTO 0.03 K/mm3 (0.00-0.23); BASOPHILS PERCENT AUTO 0 % (0-2); EOSINOPHILS ABSOLUTE AUTO 0.17 K/mm3 (0.00-0.68); EOSINOPHILS PERCENT AUTO 2 % (0-6); Hematocrit 31.8 % (33.0-51.0); Hemoglobin 9.9 g/dL (11.5-16.0); IMMATURE GRAN ABSOLUTE AUTO 0.03 K/mm3 (0.00-0.10); IMMATURE GRAN PERCENT AUTO 0 % (0-1); LYMPHOCYTES ABSOLUTE AUTO 1.62 K/mm3 (0.84-5.20); LYMPHOCYTES PERCENT AUTO 20 % (21-46); MONOCYTES ABSOLUTE AUTO 0.38 K/mm3 (0.16-1.47); MONOCYTES PERCENT AUTO 5 % (4-13); Mean Corpuscular HGB 26.3 pg (26.0-34.0); Mean Corpuscular HGB Conc 31.1 g/dL (31.5-36.5); Mean Corpuscular Volume 84 fL (80-100); Mean Platelet Volume 9.7 fL (9.1-12.4); NEUTROPHILS PERCENT AUTO 72 % (41-73); Platelet Count 322 K/mm3 (150-400); RDW Coefficient Variation 17.7 % (11.7-14.2); RDW Standard Deviation 54.1 fL (35.1-46.3); Red Blood Cell Count 3.77 M/mm3 (3.80-5.20); White Blood Cell Count 8.03 K/mm3 (4.00-11.30)
[2020-10-23 11:38] LABS: Albumin, Blood 2.1 g/dL (3.4-5.0); Albumin/Globulin Ratio 0.4 (0.8-1.8); Bilirubin, Total 0.4 mg/dL (0.1-1.0); Bun/Creatinine Ratio 22.1 (12.0-20.0); Calcium, Blood 8.5 mg/dL (8.5-10.1); Creatinine, Blood 1.22 mg/dL (0.40-1.00); Globulin, Blood 5.8 g/dL (2.2-4.0); Potassium, Blood 4.7 mmol/L (3.5-5.5); Total Protein, Blood 7.9 g/dL (6.4-8.2)
== END 2020-10-23 15:10 | disposition home or self-care (01) ==
LOC: ER 10:14
PROVIDERS: Emergency Medicine
DX: I89.0 Lymphedema, not elsewhere classified (principal); I87.8 Other specified disorders of veins; E11.9 Type 2 diabetes mellitus without complications; I10 Essential (primary) hypertension; K21.9 Gastro-esophageal reflux disease without esophagitis; E78.5 Hyperlipidemia, unspecified; F17.210 Nicotine dependence, cigarettes, uncomplicated; Z91.041 Radiographic dye allergy status; Z79.899 Other long term (current) drug therapy
CPT/HCPCS: 36415; 80053; 85025; 99283

== ENCOUNTER 2021-05-26 16:01 | Inpatient (IN) | payer MEDICARE, OTHER ==
[~2021-05-26] VITALS: Ht 167.6 cm; Wt 78.8 kg
--- NOTE | 2021-05-26 16:50 | NUR ---
PT ARRIVED TO ROOM DIRECT ADMIT TRANSFERRED SELF FROM TO BED. HAS HX R BKA. L GANGRENOUS FOOT WRAPPED AT DR WATTS' OFFICE. PLACED NON SKID SOCK ON L FOOT. LUNGS DIM BUT RESPIRATIONS E/U. HRR. BTX4. PT REPORTS NAUSEA THAT HAS PERSISTED SINCE INFECTION TO FOOT STARTED. ORIENTED TO ROOM. CALL LIGHT IN REACH.
[2021-05-26 17:29] LABS: BASOPHILS ABSOLUTE AUTO 0.05 K/mm3 (0.00-0.23); BASOPHILS PERCENT AUTO 0 % (0-2); EOSINOPHILS ABSOLUTE AUTO 0.07 K/mm3 (0.00-0.68); EOSINOPHILS PERCENT AUTO 0 % (0-6); Hemoglobin 8.1 g/dL (11.5-16.0); IMMATURE GRAN ABSOLUTE AUTO 0.29 K/mm3 (0.00-0.10); IMMATURE GRAN PERCENT AUTO 1 % (0-1); LYMPHOCYTES ABSOLUTE AUTO 1.09 K/mm3 (0.84-5.20); LYMPHOCYTES PERCENT AUTO 5 % (21-46); MONOCYTES ABSOLUTE AUTO 1.03 K/mm3 (0.16-1.47); MONOCYTES PERCENT AUTO 5 % (4-13); Mean Corpuscular HGB 25.4 pg (26.0-34.0); Mean Corpuscular HGB Conc 31.2 g/dL (31.5-36.5); Mean Corpuscular Volume 82 fL (80-100); NEUTROPHILS ABSOLUTE AUTO 19.47 K/mm3 (1.96-9.15); NEUTROPHILS PERCENT AUTO 89 % (41-73); NRBC ABSOLUTE 0.03 K/mm3 (0.00-0.02); NRBC Auto 0.1 /100 WBC (0.0-0.2); Platelet Count 577 K/mm3 (150-400); RDW Coefficient Variation 16.6 % (11.7-14.2); RDW Standard Deviation 49.5 fL (35.1-46.3); Red Blood Cell Count 3.19 M/mm3 (3.80-5.20)
[2021-05-26 17:43] LABS: International Normalized Ratio 1.14; Prothrombin Time Results 11.9 Sec (9.7-11.5)
[2021-05-26 17:48] LABS: Bun/Creatinine Ratio 14.9 (12.0-20.0); Creatinine, Blood 3.63 mg/dL (0.40-1.00); Potassium, Blood 4.9 mmol/L (3.5-5.5)
[2021-05-26 18:59] LABS: SARS-Cov-2 (COVID-19) PCR, MMC NEGATIVE (NEGATIVE)
[2021-05-27 04:53] LABS: Anion Gap 6 mmol/L (6-16); Blood Urea Nitrogen 51 mg/dL (8-24); Bun/Creatinine Ratio 13.8 (12.0-20.0); CO2, Blood 26 mmol/L (21-32); Calcium, Blood 8.5 mg/dL (8.5-10.1); Chloride, Blood 96 mmol/L (98-108); Creatinine, Blood 3.69 mg/dL (0.40-1.00); Glomerular Filtration Rate 13 (60-); Glucose, Blood 144 mg/dL (70-99); Potassium, Blood 5.5 mmol/L (3.5-5.5); Sodium, Blood 128 mmol/L (136-145); Vancomycin, Random 21.6 ug/mL
--- NOTE | 2021-05-27 11:51 | NUR ---
THE PATIENT WAS BROUGHT TO DAY SURGERY FOR HER PROCEDURE ON HER HOSPITAL BED. Lungs clear T/O to Auscultation. Pre-Op teaching done. Pt verbalizes understanding. History, Chart, Medications and Allergies reviewed before start of procedure.
--- NOTE | 2021-05-27 14:08 | NUR ---
05/27/21 Yessi To PATIENT ON SCHEDULED ANTIBIOTICS.
--- NOTE | 2021-05-27 16:42 | NUR ---
PATIENT CAME BACK FROM PACU TODAY 05/27/21 AT AROUND 1600. POD 0 LEFT BKA PATIENT IS SLEEPY BUT AROUSABLE WITH TOUCH. VS ARE WNL AND IS ON RA. PATIENT DENIES PAIN AT THIS TIME. LEFT KNEE HAS A STUMP SOCK ON THAT IS C/D/I. SHE IS ABLE TO LIFT THE LEFT LEG WHEN ASKED. SHE IS TOLERATING SMALL AMOUNTS OF PO INTAKE. PATIENT HAS A FRIEND AT BEDSIDE WITH HER. CALL LIGHT WITHIN REACH. SHE IS CURRENTLY LAYING DOWN WITH EYES CLOSED.
[2021-05-28 07:22] LABS: Vancomycin, Random 13.5 ug/mL
[2021-05-28 13:13] LABS: Hematocrit 24.8 % (33.0-51.0); Hemoglobin 7.4 g/dL (11.5-16.0); Mean Corpuscular HGB 24.9 pg (26.0-34.0); Mean Corpuscular HGB Conc 29.8 g/dL (31.5-36.5); Mean Corpuscular Volume 84 fL (80-100); Mean Platelet Volume 9.1 fL (9.1-12.4); Platelet Count 591 K/mm3 (150-400); RDW Standard Deviation 51.9 fL (35.1-46.3); Red Blood Cell Count 2.97 M/mm3 (3.80-5.20); White Blood Cell Count 18.68 K/mm3 (4.00-11.30)
[2021-05-28 14:09] LABS: Albumin, Blood 1.2 g/dL (3.4-5.0); Albumin/Globulin Ratio 0.2 (0.8-1.8); Bilirubin, Total 0.3 mg/dL (0.1-1.0); Bun/Creatinine Ratio 15.1 (12.0-20.0); Calcium, Blood 7.8 mg/dL (8.5-10.1); Creatinine, Blood 3.5 mg/dL (0.40-1.00); Globulin, Blood 6.1 g/dL (2.2-4.0); Percent Saturation 28.2 % (15.0-50.0); Potassium, Blood 5.2 mmol/L (3.5-5.5); Thyroid Stimulating Hormone 0.387 uIU/mL (0.360-4.800); Total Protein, Blood 7.3 g/dL (6.4-8.2)
--- NOTE | 2021-05-28 17:44 | NUR ---
SHIFT SUMMARY POD1 RIGHT BKA. DRESSING CHANGED TODAY BY DR. FINCH C/D/I. PT USING SLIDE BOARD TO TRANSFER TO BEDSIDE COMMODE. VOIDING AND PASSING STOOL TODAY. VITAL SIGNS STABLE. PAIN BEING MANAGED PER EMAR WITH PO PAIN MEDICATION. WILL REPORT TO ONCOMING RN.
--- NOTE | 2021-05-29 05:43 | NUR ---
SHIFT SUMMARY PT A&O X4. PT COMPLAINTS OF PAIN, SOMEWHAT MANAGED W/ REPOSITION. MEDICATED PER EMAR T/O SHIFT. CALL LIGHT W/ IN REACH AND PT ABLE TO UTILIZE APPROPRIATELY. PT RESTING IN BED T/O SHIFT. TOLERATING PO INTAKE WELL. VSS.
[2021-05-29 10:14] LABS: Hematocrit 24.5 % (33.0-51.0); Hemoglobin 7.3 g/dL (11.5-16.0); Mean Corpuscular HGB 25.2 pg (26.0-34.0); Mean Corpuscular HGB Conc 29.8 g/dL (31.5-36.5); Mean Corpuscular Volume 85 fL (80-100); Mean Platelet Volume 9.3 fL (9.1-12.4); Platelet Count 661 K/mm3 (150-400); RDW Coefficient Variation 17.3 % (11.7-14.2); RDW Standard Deviation 53.7 fL (35.1-46.3); White Blood Cell Count 12.66 K/mm3 (4.00-11.30)
[2021-05-29 10:51] LABS: Albumin, Blood 1.3 g/dL (3.4-5.0); Albumin/Globulin Ratio 0.2 (0.8-1.8); Bilirubin, Total 0.5 mg/dL (0.1-1.0); Calcium, Blood 8.4 mg/dL (8.5-10.1); Creatinine, Blood 3.8 mg/dL (0.40-1.00); Globulin, Blood 6.2 g/dL (2.2-4.0); Potassium, Blood 5.3 mmol/L (3.5-5.5); Total Protein, Blood 7.5 g/dL (6.4-8.2)
[2021-05-29] MEDS ORDERED: AMOX875 PO (16:37)
--- NOTE | 2021-05-29 18:23 | NUR ---
DISCHARGE SUMMARY PT DISCHARGE AT APPROX 1610. POD2 FOR L LOWER EXTREMITY, INCISION COVERED WITH GAUZE, BOBBY WRAP AND STUMP SOCK, C/D/I. PAIN BEING MANAGED WITH PO PAIN MEDICATIONS. PT VOIDING AND HAVING BOWEL MOVEMENTS. USING THE SLIDE BOARD FOR TRANSFERS. BELONGINGS GATHERED AND TAKEN WITH PT. POWERGLIDE REMOVED WITHIN NORMAL LIMITS. VERBAL AND WRITTEN DISCHARGE INSTRUCTIONS GIVEN. PRESCRIPTION CALL TO PHARMACY AND WRITTEN PRESCRIPTION GIVEN TO PT. PT WHEELED OUT TO VEHICLE.
== END 2021-05-29 17:11 | disposition home or self-care (01) | DRG 853 ==
LOC: SURS 16:01
PROVIDERS: Internal Medicine; ADMIT Orthopaedic Surgery
PROC: 0Y6J0Z1 Detachment at Left Lower Leg, High, Open Approach (ICD-10-PCS; principal; 2021-05-27 12:30)
DX: A41.9 Sepsis, unspecified organism (principal); A48.0 Gas gangrene; L02.612 Cutaneous abscess of left foot; M86.672 Other chronic osteomyelitis, left ankle and foot; E87.1 Hypo-osmolality and hyponatremia; N17.9 Acute kidney failure, unspecified; E11.52 Type 2 diabetes mellitus with diabetic peripheral angiopathy with gangrene; M86.172 Other acute osteomyelitis, left ankle and foot; Z20.822 Contact with and (suspected) exposure to COVID-19; E11.69 Type 2 diabetes mellitus with other specified complication; I10 Essential (primary) hypertension; K21.9 Gastro-esophageal reflux disease without esophagitis; E78.5 Hyperlipidemia, unspecified; G35 Multiple sclerosis; Z79.899 Other long term (current) drug therapy; N18.30 Chronic kidney disease, stage 3 unspecified; E11.22 Type 2 diabetes mellitus with diabetic chronic kidney disease; G89.29 Other chronic pain; D63.1 Anemia in chronic kidney disease; F17.210 Nicotine dependence, cigarettes, uncomplicated; Z89.511 Acquired absence of right leg below knee; Z98.890 Other specified postprocedural states; Z91.048 Other nonmedicinal substance allergy status; Z79.84 Long term (current) use of oral hypoglycemic drugs
CPT/HCPCS: 36415; 80048; 80053; 80202; 82728; 82947; 83036; 83540; 83550; 83605; 83735; 84443; 85025; 85027; 85610; 88307; 88311; 93005; 93010; 94762; 97162; 97167; 97530; 97535; A9270; J0171; J1100; J1815; J2370; J2405; J2543; J2704; J3010; J3370; J7030; J7050; U0004

== ENCOUNTER 2021-07-28 17:56 | Inpatient (IN) | payer MEDICARE, OTHER ==
[~2021-07-28] VITALS: Ht 172.7 cm; Wt 84.0 kg
[~2021-07-28 17:56] MED LIST changes: +AMLO10 PO; +AMOX875 PO; +CARV6.25 PO; +CLINDAMYCIN PHO40 G1; +ESOM20; +FOLI1 PO; +FURO80 PO; +GLIP2.5ER; +HYDR10; +SILVADENE20 G3 TOP
--- NOTE | 2021-07-28 18:57 | NUR ---
PATIENT ARRIVED TO THE FLOOR IN WC, PATIENT HAS KNEE PADS ON AND SAYS THAT IS HOW SHE GET AROUND. PATIENT DOES NOT WANT TO GET INTO GOWN OR GET INTO BED AT THIS TIME. IV STARTED TO RFA 20G, TOLERATED WELL. PATIENT IS AAOX4, ABLE TO MAKE NEEDS AND WANTS KNOWN. HERE FOR LEFT BKA WOUND INFECTION. PATIENT TO BE NPO AFTER MIDNIGHT TONIGHT FOR I&D WITH DR WATTS TOMORROW. HOSPITALIST CONSULTED.
[2021-07-28 19:19] LABS: BASOPHILS ABSOLUTE AUTO 0.03 K/mm3 (0.00-0.23); BASOPHILS PERCENT AUTO 0 % (0-2); EOSINOPHILS ABSOLUTE AUTO 0.09 K/mm3 (0.00-0.68); EOSINOPHILS PERCENT AUTO 1 % (0-6); Hematocrit 26.8 % (33.0-51.0); IMMATURE GRAN ABSOLUTE AUTO 0.03 K/mm3 (0.00-0.10); IMMATURE GRAN PERCENT AUTO 0 % (0-1); LYMPHOCYTES ABSOLUTE AUTO 0.94 K/mm3 (0.84-5.20); LYMPHOCYTES PERCENT AUTO 14 % (21-46); MONOCYTES ABSOLUTE AUTO 0.27 K/mm3 (0.16-1.47); MONOCYTES PERCENT AUTO 4 % (4-13); Mean Corpuscular HGB 26.1 pg (26.0-34.0); Mean Corpuscular HGB Conc 29.9 g/dL (31.5-36.5); Mean Corpuscular Volume 87 fL (80-100); Mean Platelet Volume 9.4 fL (9.1-12.4); NEUTROPHILS ABSOLUTE AUTO 5.42 K/mm3 (1.96-9.15); NEUTROPHILS PERCENT AUTO 80 % (41-73); Platelet Count 260 K/mm3 (150-400); RDW Coefficient Variation 18.6 % (11.7-14.2); RDW Standard Deviation 59.3 fL (35.1-46.3); Red Blood Cell Count 3.07 M/mm3 (3.80-5.20); White Blood Cell Count 6.78 K/mm3 (4.00-11.30)
[2021-07-28 19:40] LABS: Bun/Creatinine Ratio 12.6 (12.0-20.0); Calcium, Blood 8.8 mg/dL (8.5-10.1); Creatinine, Blood 3.49 mg/dL (0.40-1.00); Potassium, Blood 5.9 mmol/L (3.5-5.5)
[2021-07-28 20:47] LABS: Influenza A, PCR NEGATIVE (NEGATIVE); Influenza B, PCR NEGATIVE (NEGATIVE); Resp Syncytial Virus, PCR NEGATIVE (NEGATIVE); SARS-Cov-2 (COVID-19) PCR, MMC NEGATIVE (NEGATIVE)
[2021-07-29 01:49] LABS: Albumin, Blood 2.1 g/dL (3.4-5.0); Albumin/Globulin Ratio 0.4 (0.8-1.8); Bilirubin, Total 0.3 mg/dL (0.1-1.0); Bun/Creatinine Ratio 12.5 (12.0-20.0); Calcium, Blood 8.9 mg/dL (8.5-10.1); Creatinine, Blood 3.6 mg/dL (0.40-1.00); Globulin, Blood 5.7 g/dL (2.2-4.0); Potassium, Blood 5.3 mmol/L (3.5-5.5); Total Protein, Blood 7.8 g/dL (6.4-8.2)
--- NOTE | 2021-07-29 02:16 | NUR ---
PT OOB IND AND USED KNEE PADS TO CRAWL TO BR W/ IV POLE. PT ACCIDENTALLY PULLED IV OUT AT APPROX 2345. THIS RN ATTEMPTED TWICE, UNSUCCESFULLY. DEXIGRAPH OPERATOR ATTEMPTED 3 TIMES WITH NEW IV PLACED AT 0110-SEE VASCULAR ACCESS CHARTING. PRIMARY RN FOUND PT WITH IV ALMOST COMPLETELY PULLED OUT. WHEN ASKED WHAT HAPPENED, PT STATED "I DIDN'T DO ANYTHING. I DIDN'T DO ANYTHING. I DON'T KNOW WHAT HAPPENED". UNABLE TO SAVE IV. IV COMPLETELY D/C'D AT APPROX 0145. DR ZACARIAS NOTIFIED OF PT NEEDING A THIRD IV THUS SCHEDULED IV ABX WOULD BE ADMINISTERED LATE.
--- NOTE | 2021-07-29 06:18 | NUR ---
PT DIRECT ADMIT ON PREVIOUS SHIFT. HOSPITALIST CONSULTED ON CENTRAL COMMUNICATIONS SPECIALIST. PAIN MANAGED W/ PRN PAIN MEDICATIONS. PT IS LANA BILLINGSLEY W/ L BKA INC INF. WHEELCHAIR BOUND W/ KNEE PADS AT HOME. PLEASE SEE NURSING NOTE ABOUT IV BEING D/C'D. NPO SINCE MIDNIGHT FOR POSSIBLE I/D TODAY, 07/29. AT APPROX 2345, PT BECAME SOB IN BED, WENT TO BATHROOM, AND WAS UNABLE TO LEAVE BR W/O OXYGEN W/ NC. PT STATES SHE CONSISTENTLY HAS TROUBLE BREATHING WHEN SHE LIES DOWN. LS WHEEZY, RA 91%. 2L O2 NC PLACED ON PT. IMMEDIATE RELIEF FELT PER PT. PT REQUESTED TO LEAVE 2L O2 NC ON OVERNIGHT. STATES SHE "FEELS BETTER WITH IT ON". BS 76 THIS AM. NO S/S HYPOGLYCEMIA. WILL CONTINUE TO MONITOR
[2021-07-29 07:54] LABS: Vancomycin, Random 21.1 ug/mL
[2021-07-29 08:20] LABS: Albumin, Blood 2.1 g/dL (3.4-5.0); Anion Gap 7 mmol/L (6-16); Blood Urea Nitrogen 45 mg/dL (8-24); Bun/Creatinine Ratio 12.4 (12.0-20.0); CO2, Blood 23 mmol/L (21-32); Chloride, Blood 106 mmol/L (98-108); Creatinine, Blood 3.64 mg/dL (0.40-1.00); Glomerular Filtration Rate 13 (60-); Glucose, Blood 76 mg/dL (70-99); Phosphorus, Blood 5.5 mg/dL (2.5-4.9); Potassium, Blood 5.4 mmol/L (3.5-5.5); Sodium, Blood 136 mmol/L (136-145)
[2021-07-29 10:50] LABS: CPK Creatine Kinase 132 U/L (26-193); Uric Acid, Blood 3.9 mg/dL (2.6-6.0)
[2021-07-29 11:23] LABS: Alanine Aminotransfer (ALT/SGP 14 U/L (12-78); Albumin, Blood 2.1 g/dL (3.4-5.0); Albumin/Globulin Ratio 0.4 (0.8-1.8); Alk Phos 74 U/L (50-136); Aspartate Aminotrans (AST/SGOT 17 U/L (12-37); Bilirubin, Direct <0.1 mg/dL (0.0-0.3); Bilirubin, Indirect Unable to Calculate mg/dL (0.1-0.7); Bilirubin, Total 0.2 mg/dL (0.1-1.0); Globulin, Blood 5.8 g/dL (2.2-4.0); Total Protein, Blood 7.9 g/dL (6.4-8.2)
--- NOTE | 2021-07-29 12:02 | NUR ---
PT IN SURG ROOM FOR PREOP DUE TO LOW CBG AND FLOOR RN CONTACTING PHYSICIAN FOR ORDERS. PT REPORTS "NOT FEELING RIGHT". History, Chart, Medications and Allergies reviewed before start of procedure.Patient confirms NPO status and agrees with scheduled surgery. Lungs clear T/O to Auscultation. WILDLIFE ECOLOGY PROFESSOR AT BEDSIDE ADMINISTERING D50. WILL TRANSFER PT TO DAY SURGERY WHEN ADMINISTRATION IS COMPLETE.
--- NOTE | 2021-07-29 13:01 | NUR ---
PT BLADDER SCANNED DUE BEING UNABLE TO VOID. 596ML SHOWED IN BLADDER SCANNER.PT IS REFUSING TO BE CATHED. SURGEON, CIRCULATING RN, AND IN FLIGHT REFUELING CRAFTSMAN NOTIFIED.
--- NOTE | 2021-07-29 13:29 | NUR ---
REPORT TO KENYETTA STALEY
--- NOTE | 2021-07-29 18:36 | NUR ---
PATIENT HAD I&D OF LEFT STUMP TODAY WITH WOUND VAC PLACEMENT. PATIENT REFUSED IN AND OUT CATH TODAY. SHE WAS ABLE TO VOID A LARGE AMOUNT OF URINE AT THIS TIME. PATIENT USED THE BATHROOM. PATIENT STOOD ON HER RIGHT KNEE WITH KNEE PAD IN PLACE TO TRANSFER TO HER FROM BED AND THEN FROM TO TOILET AND BACK. PATIENT DID WELL. NO SIGNS OR SYMPTOMS ACUTE DISTRESS NOTED AT THIS TIME. ABLE TO MAKE NEEDS AND WANTS KNOWN. WILL MONITOR.
--- NOTE | 2021-07-30 06:08 | NUR ---
VSS. PAIN MANAGED W/ PRN PAIN MEDICATIONS. WV IN PLACE. MINIMAL SERSANGUINOUS DRAINAGE. +VOID X3 OVERNIGHT. RA. +IV ABX. PT SLEEPING IN WC. REFUSED TO SLEEP IN BED. NO ISSUES THROUGHOUT SHIFT. WILL CONTINUE TO MONITOR.
[2021-07-30 06:37] LABS: Hemoglobin 7.6 g/dL (11.5-16.0)
[2021-07-30 07:28] LABS: Magnesium, Blood 2.5 mg/dL (1.6-2.4)
[2021-07-30 07:33] LABS: Albumin, Blood 2.1 g/dL (3.4-5.0); Anion Gap 7 mmol/L (6-16); Blood Urea Nitrogen 53 mg/dL (8-24); Bun/Creatinine Ratio 13.1 (12.0-20.0); CO2, Blood 25 mmol/L (21-32); Calcium, Blood 8.1 mg/dL (8.5-10.1); Chloride, Blood 104 mmol/L (98-108); Creatinine, Blood 4.05 mg/dL (0.40-1.00); Glomerular Filtration Rate 11 (60-); Glucose, Blood 166 mg/dL (70-99); Phosphorus, Blood 6.4 mg/dL (2.5-4.9); Potassium, Blood 6.2 mmol/L (3.5-5.5); Sodium, Blood 136 mmol/L (136-145); Vancomycin, Random 17.7 ug/mL
--- NOTE | 2021-07-30 14:03 | NUR ---
Pt. was sitting up. Was generally not interested in seeing a supervisor mold shop. Pt. did ask if I could flag a nurse to come help clean upa spill. Communicated need to floor nurse.
--- NOTE | 2021-07-30 18:33 | NUR ---
PATIENT CURRENTLY IS NOT IN ROOM. PATIENT REFUSES TO STAY IN ROOM. SHE HAS BEEN IN WHEELCHAIR ON THIS FLOOR IN HALLWAY MOST OF DAY UNTIL HER BOYFRIEND CAME. PATIENT GOING OUTSIDE TO SMOKE, GOING TO [place]. PATIENT GETS ANGRY WHEN TOLD SHE HAS IV ANTIBIOTICS DUE AND HAS TO STAY IN ROOM. MIDLINE PLACED TO LEFT UPPER ARM TODAY FOR IV ANTIBIOTCS. PATIENT REFUSED TO STAY IN ROOM, THEN WAS ABLE TO TALK HER INTO IT TO GET THE IV, THEREFORE HER STAT MEDS WERE NOT GIVEN IN A TIMELY MANNER. PATIENT THROWS THINGS OFTEN WHEN SHE DOES NOT GET HER WAY. SHE HAS THE CALL LIGHT IN REACH BUT DOES NOT USE IT, INSTEAD CURSES AND THROWS ITEMS. EXPLAINED TO HER THIS IS NOT APPROPRIATE, SHE VERBALIZED UNDERSTANDING BUT CONTINUES TO DO IT. SHE REFUSES TO KEEP HER WOUND VAC PLUGGED IN. PATIENT CONTINUES TO USE HER KNEES TO TRANSFER TO AND FROM BED, TOILET, WC. ENCOUAGED NOT TO DO THAT, REFUSES. WILL MONITOR.
[2021-07-31 06:35] LABS: Albumin, Blood 2.1 g/dL (3.4-5.0); Anion Gap 9 mmol/L (6-16); Blood Urea Nitrogen 58 mg/dL (8-24); CO2, Blood 24 mmol/L (21-32); Calcium, Blood 8.4 mg/dL (8.5-10.1); Chloride, Blood 106 mmol/L (98-108); Creatinine, Blood 4.15 mg/dL (0.40-1.00); Glomerular Filtration Rate 11 (60-); Glucose, Blood 112 mg/dL (70-99); Magnesium, Blood 2.2 mg/dL (1.6-2.4); Sodium, Blood 139 mmol/L (136-145); Vancomycin, Random 14.2 ug/mL
[2021-07-31 06:36] LABS: BASOPHILS ABSOLUTE AUTO 0.03 K/mm3 (0.00-0.23); BASOPHILS PERCENT AUTO 1 % (0-2); EOSINOPHILS ABSOLUTE AUTO 0.18 K/mm3 (0.00-0.68); EOSINOPHILS PERCENT AUTO 3 % (0-6); Hematocrit 25.1 % (33.0-51.0); Hemoglobin 7.5 g/dL (11.5-16.0); IMMATURE GRAN ABSOLUTE AUTO 0.03 K/mm3 (0.00-0.10); IMMATURE GRAN PERCENT AUTO 1 % (0-1); LYMPHOCYTES PERCENT AUTO 26 % (21-46); MONOCYTES ABSOLUTE AUTO 0.31 K/mm3 (0.16-1.47); MONOCYTES PERCENT AUTO 5 % (4-13); Mean Corpuscular HGB 26.5 pg (26.0-34.0); Mean Corpuscular HGB Conc 29.9 g/dL (31.5-36.5); Mean Corpuscular Volume 89 fL (80-100); Mean Platelet Volume 9.8 fL (9.1-12.4); NEUTROPHILS ABSOLUTE AUTO 4.37 K/mm3 (1.96-9.15); NEUTROPHILS PERCENT AUTO 66 % (41-73); Platelet Count 245 K/mm3 (150-400); RDW Coefficient Variation 18.6 % (11.7-14.2); RDW Standard Deviation 59.7 fL (35.1-46.3); Red Blood Cell Count 2.83 M/mm3 (3.80-5.20); White Blood Cell Count 6.62 K/mm3 (4.00-11.30)
--- NOTE | 2021-07-31 07:41 | NUR ---
SUMMARY PT CONTINUES TO LEAVE ROOM OFTEN.REPORTS SHE DOES NOT STAY ON ANY DIET RESTRICTIONS AT HOME.ALSO REPORTS HER MED LIST NEEDS TO BE DISCUSSED WITH DOCTOR. DAY RN AGREES TO FOLLOW UP.
--- NOTE | 2021-07-31 13:19 | NUR ---
07/31/21 1319 Lisa Wolf VERIFICATIONS: EDIT CHART.
[2021-07-31] MEDS ORDERED: 1/2 NS 250ml250 ML (14:35)
[2021-07-31] MEDS ORDERED: METO5 PO (14:35)
[2021-07-31] MEDS ORDERED: PROBIOTIC1 EA13 PO (14:36)
[2021-07-31] MEDS ORDERED: CLIN300 PO (14:38)
[2021-07-31] MEDS ORDERED: SPIR25 PO (14:39)
--- NOTE | 2021-07-31 15:45 | NUR ---
DISCHARGE SUMMARY: PATIENT DC'D HOME WITH HOME HEALTH. WOUND VAC DRESSING CHANGED BY THIS AM. PRIOR TO LEAVING [facility], PATIENT WAS SWITCHED TO HOME WOUND VAC MACHINE. DC INSTRUCTION PROVIDED, PT VERBALIZED UNDERSTANDING. ALL BELONGINGS SENT HOME WITH PT. PT IN NO APPARENT DISTRESS AT THIS TIME.
== END 2021-07-31 15:35 | disposition home or self-care (01) | DRG 493 ==
LOC: SURS 17:56
PROVIDERS: Family Medicine; Internal Medicine Nephrology; Pharmacist; Student in an Organized Health Care Education/Training Program; ADMIT Orthopaedic Surgery
PROC: 0QBH0ZZ Excision of Left Tibia, Open Approach (ICD-10-PCS; principal; 2021-07-29 12:30)
DX: T87.44 Infection of amputation stump, left lower extremity (principal); N18.4 Chronic kidney disease, stage 4 (severe); I50.32 Chronic diastolic (congestive) heart failure; N17.9 Acute kidney failure, unspecified; E87.2 Acidosis; N25.81 Secondary hyperparathyroidism of renal origin; Z20.822 Contact with and (suspected) exposure to COVID-19; E11.22 Type 2 diabetes mellitus with diabetic chronic kidney disease; D63.1 Anemia in chronic kidney disease; E78.5 Hyperlipidemia, unspecified; I27.20 Pulmonary hypertension, unspecified; Z88.8 Allergy status to other drugs, medicaments and biological substances; G35 Multiple sclerosis; Z79.84 Long term (current) use of oral hypoglycemic drugs; F17.210 Nicotine dependence, cigarettes, uncomplicated; Z79.899 Other long term (current) drug therapy; Z91.041 Radiographic dye allergy status; G89.29 Other chronic pain; Z90.721 Acquired absence of ovaries, unilateral; E87.5 Hyperkalemia; B95.61 Methicillin susceptible Staphylococcus aureus infection as the cause of diseases classified elsewhere; E88.09 Other disorders of plasma-protein metabolism, not elsewhere classified; G89.4 Chronic pain syndrome; I12.9 Hypertensive chronic kidney disease with stage 1 through stage 4 chronic kidney disease, or unspecified chronic kidney disease
CPT/HCPCS: 0241U; 36415; 71045; 76770; 80048; 80053; 80069; 80076; 80202; 82550; 82947; 83735; 83880; 84132; 84145; 84550; 85014; 85018; 85025; 85651; 86140; 87071; 87075; 87077; 87147; 87186; 87205; 93005; 93010; 93306; 94760; A9270; J0610; J0696; J1170; J1815; J2543; J2704; J2765; J3010; J3370; J7030; J7040; J7120

== ENCOUNTER → 2021-09-21 | Outpatient (CLI) | payer MEDICARE, OTHER ==
[~2021-09-21] MED LIST changes: +1/2 NS 250ml250 ML; +METO5 PO; +PROBIOTIC1 EA13 PO
[2021-09-21 16:52] LABS: Albumin, Blood 2.4 g/dL (3.4-5.0); Anion Gap 6 mmol/L (6-16); Blood Urea Nitrogen 41 mg/dL (8-24); CO2, Blood 24 mmol/L (21-32); Calcium, Blood 8.4 mg/dL (8.5-10.1); Chloride, Blood 104 mmol/L (98-108); Creatinine, Blood 3.16 mg/dL (0.40-1.00); Glomerular Filtration Rate 15 (60-); Glucose, Blood 147 mg/dL (70-99); Phosphorus, Blood 5.2 mg/dL (2.5-4.9); Potassium, Blood 5.5 mmol/L (3.5-5.5); Sodium, Blood 134 mmol/L (136-145)
== END | disposition home or self-care (01) ==
LOC: LAB SHORT 15:40
PROVIDERS: Internal Medicine Nephrology
DX: N18.5 Chronic kidney disease, stage 5 (principal); D63.1 Anemia in chronic kidney disease; E86.9 Volume depletion, unspecified
CPT/HCPCS: 80069

== ENCOUNTER → 2021-09-25 | Outpatient (CLI) | payer MEDICARE, OTHER ==
[2021-09-25 17:18] LABS: Albumin, Blood 2.4 g/dL (3.4-5.0); Anion Gap 6 mmol/L (6-16); Blood Urea Nitrogen 38 mg/dL (8-24); Bun/Creatinine Ratio 11.8 (12.0-20.0); CO2, Blood 27 mmol/L (21-32); Chloride, Blood 103 mmol/L (98-108); Creatinine, Blood 3.22 mg/dL (0.40-1.00); Glomerular Filtration Rate 15 (60-); Glucose, Blood 202 mg/dL (70-99); Phosphorus, Blood 5.5 mg/dL (2.5-4.9); Potassium, Blood 4.7 mmol/L (3.5-5.5); Sodium, Blood 136 mmol/L (136-145)
== END ==
LOC: LAB SHORT 16:29
PROVIDERS: Internal Medicine Nephrology
DX: N18.4 Chronic kidney disease, stage 4 (severe) (principal); D63.1 Anemia in chronic kidney disease
CPT/HCPCS: 80069

== ENCOUNTER → 2021-10-02 | Outpatient (CLI) | payer MEDICARE, OTHER ==
[2021-10-02 13:27] LABS: Albumin, Blood 2.4 g/dL (3.4-5.0); Anion Gap 3 mmol/L (6-16); Blood Urea Nitrogen 42 mg/dL (8-24); Bun/Creatinine Ratio 14.4 (12.0-20.0); CO2, Blood 31 mmol/L (21-32); Calcium, Blood 8.9 mg/dL (8.5-10.1); Chloride, Blood 101 mmol/L (98-108); Creatinine, Blood 2.92 mg/dL (0.40-1.00); Glomerular Filtration Rate 16 (60-); Glucose, Blood 167 mg/dL (70-99); Phosphorus, Blood 6.1 mg/dL (2.5-4.9); Potassium, Blood 4.9 mmol/L (3.5-5.5); Sodium, Blood 135 mmol/L (136-145)
== END ==
LOC: LAB SHORT 12:50
PROVIDERS: Internal Medicine Nephrology
DX: N18.4 Chronic kidney disease, stage 4 (severe) (principal)
CPT/HCPCS: 80069

== ENCOUNTER 2022-03-11 09:06 | Day surgery (SDC) | payer MEDICARE, OTHER ==
[~2022-03-11] VITALS: Wt 72.7 kg
--- NOTE | 2022-03-11 11:04 | NUR ---
PT ALERT, AWAKE, AND TALKING WITH VISITOR. PT EATING BREAKFAST.
--- NOTE | 2022-03-11 11:13 | NUR ---
PT PERMCATH SITE STABLE. DISCHARGE REVIEWED WITH PT, VERBALIZES UNDERSTANDING. PT GETTING DRESSED PER SELF. SALINE LOCK REMOVED WITH CATHETER INTACT. PT DISCHARGED WITH SCOOTER AND FAMILY MEMBER.
== END 2022-03-11 11:20 | disposition home or self-care (01) ==
LOC: MHTC 09:06
DX: Z49.01 Encounter for fitting and adjustment of extracorporeal dialysis catheter (principal); I12.0 Hypertensive chronic kidney disease with stage 5 chronic kidney disease or end stage renal disease; N18.6 End stage renal disease; F17.210 Nicotine dependence, cigarettes, uncomplicated; Z88.8 Allergy status to other drugs, medicaments and biological substances; Z91.041 Radiographic dye allergy status; Z79.899 Other long term (current) drug therapy
CPT/HCPCS: 36558; 76937; 77001; 99152; C1750; C1769; C1894; J1644; J2250; J3010; J7040